=== PATIENT | female | born 1955 | race Caucasian/White ===

== ENCOUNTER 2021-09-13 20:31 | Emergency (ER) | payer MEDICARE, BC ==
[~2021-09-13] VITALS: Ht 157.5 cm; Wt 116.0 kg
[2021-09-13 20:42] VITALS: BP 133/87
--- NOTE | 2021-09-13 20:52 | PHYS DOC ---
Adult General Chief Complaint Chief Complaint: MECHANICAL FALL HPI HPI Patient is a 66-year-old female who presents with right ankle and left knee pain after slipping on her stairs in her house. States that she did hit her head, had no loss of consciousness has no neck pain, chest pain, shortness of breath, abdominal pain, nausea, vomiting. Denies any numbness/weakness/tingling. States she can walk is just a little uncomfortable. Did not take any medications. Review of Systems Review of Systems Review of systems otherwise unremarkable except noted in HPI Physical Exam Physical Exam Constitutional: Well developed, well nourished, no acute distress, non-toxic appearance. [] HENT: Normocephalic, atraumatic, Eyes: conjunctiva normal, no discharge. [] Neck: Normal range of motion, no tenderness, Cardiovascular:Heart rate regular rhythm, no murmur [] Lungs & Thorax: No respiratory distress or chest pain Abdomen: no tenderness, Skin: Warm, dry, no erythema, no rash. [] Back: No tenderness, Extremities: Left ankle with some mild tenderness throughout with no obvious bruising, swelling or deformities. Right knee with some generalized tenderness with no obvious bruising, swelling or deformities. Neurovascular exam intact Neurologic: Alert and oriented X 3, normal motor function, normal sensory function, able to sit, stand and walk without issue no focal deficits noted. [] Psychologic: Affect normal, judgement normal, mood normal. [] EKG EKG [] Radiology/Procedures Radiology/Procedures [] Heart Score C/O Chest Pain: No Risk Factors: Risk Factors: DM, Current or recent (<one month) smoker, HTN, HLP, family history of CAD, obesity. Risk Scores: Risk Factors: DM, Current or recent (<one month) smoker, HTN, HLP, family history of CAD, obesity. Course & Med Decision Making Course & Med Decision Making Patient is a 66-year-old female who presents with left ankle and right knee pain after falling on her stairs Given ice and ibuprofen. Imaging with no acute osseous abnormalities. Discussed findings with patient. Discussed symptom management at home. Advised to follow-up with primary care physician. Gave return precautions to the ED. Patient grateful, verbalized understanding and agreed with plan of discharge. [] Dragon Disclaimer Dragon Disclaimer This electronic medical record was generated, in whole or in part, using a voice recognition dictation system. Departure Departure: Impression: Primary Impression: Ankle pain Additional Impression: Knee pain Disposition: HOME / SELF CARE / HOMELESS Condition: GOOD Referrals: HAZEL GARCIA (PCP) Patient Instructions: RICE - Routine Care for Injuries Additional Instructions: Thank you for coming into the emergency department tonight allowing us to take care of you. Please read the attached information carefully to go over things we discussed. You can use ibuprofen, and ice as needed. Please follow-up with your primary care physician tomorrow to update on your ED visit and set up a follow-up as needed. Please come back with new or concerning symptoms as discussed Problem Qualifiers COCO BURDEN MD Sep 13, 2021 20:52
[2021-09-13] MEDS ORDERED: IBUPROFEN 600 MG TABLET. PO ONE (21:00)
--- NOTE | 2021-09-13 23:08 | RAD ---
Exam: Left ankle 3 views INDICATION: Fall, left ankle pain TECHNIQUE: Frontal, lateral and oblique views the left ankle Comparisons: None FINDINGS: Bone mineralization is normal. Small ossific density along the anterior process the talus. Soft tissu es are unremarkable. Joint spaces are well-maintained. IMPRESSION: Small ossific density adjacent to the anterior process the talus near represent a small avulsion frac ture fragment. Correlate with point tenderness. Electronically signed by: Pawan Moses MD (09/13/2021 11:06 PM) [facility]
--- NOTE | 2021-09-13 23:09 | RAD ---
Exam: Right knee 4 views INDICATION: Fall, right knee pain TECHNIQUE: Frontal, lateral, oblique and sunrise views of the right knee Comparisons: None FINDINGS: Bone mineralization is normal. No acute or healed fractures. Soft tissue swelling overlying the knee. Underlying Joint spaces are well-maintained. IMPRESSION: Soft tissue swelling overlying the knee without underlying osseous abnormality identified Electronically signed by: Pawan Moses MD (09/13/2021 11:07 PM) [facility]
== END 2021-09-13 21:52 | disposition home or self-care (01) ==
LOC: ER 20:31
DX: M25.561 Pain in right knee (principal); M25.572 Pain in left ankle and joints of left foot; W10.8XXA Fall (on) (from) other stairs and steps, initial encounter; Y93.89 Activity, other specified; Y92.89 Other specified places as the place of occurrence of the external cause; Y99.8 Other external cause status
CPT/HCPCS: 73564; 73610; 99284